=== PATIENT | female | born 1970 | race Caucasian/White ===

== ENCOUNTER → 2016-12-09 | Outpatient (CLI) | payer OTHER ==
[~2016-12-09] MED LIST: ALBUTEROL0.09 MG/A2 INH; DEMADEX20 MG; HYDR12.5C; HYDROCODONE BIT1 T11 PO; K-VESCENT25 MEQ; SYNTHROID,LEV100 MCG
[2016-12-09 08:16] LABS: BASO # 0.1 10*3/uL (0.0-0.1); BASO % 1.1 % (0.0-1.0); EOS # 0.2 10*3/uL (0.0-0.4); EOS % 2.3 % (1.0-4.0); HEMATOCRIT 45.5 % (37.0-47.0); HEMOGLOBIN 14.9 g/dl (12.0-16.0); IG # 0.1 10*3/uL (0.0-0.1); LYMPH # 3.1 10*3/uL (1.3-4.4); MEAN CORPUSCULAR HGB 29.2 pg (27.0-31.0); MEAN CORPUSCULAR HGB CONC 32.7 g/dl (33.0-37.0); MEAN PLATELET VOLUME 10.7 fl (9.6-12.3); MONO # 0.9 10*3/uL (0.1-1.0); MONO % 8.4 % (3.0-9.0); NEUT # 5.8 10*3/uL (2.3-7.9); NEUT % 56.7 % (47.0-73.0); PLATELET COUNT AUTOMATED 229 10*3/uL (130-400); RED BLOOD COUNT 5.11 10*6/uL (4.10-5.10); RED CELL DISTRI WIDTH 12.5 % (0-14.5); WHITE BLOOD COUNT 10.1 10*3/uL (4.8-10.8)
[2016-12-09 08:34] LABS: HEMOGLOBIN A1c 6.7 % (4.8-5.6)
[2016-12-09 08:43] LABS: ALBUMIN 3.8 gm/dl (3.1-4.5); ALKALINE PHOSPHATASE 121 U/L (45-117); BILIRUBIN, TOTAL 0.6 mg/dl (0.2-1.0); BUN 14 mg/dl (7-24); CARBON DIOXIDE 26 mmol/L (21-32); CHLORIDE 103 mmol/L (98-107); CHOLESTEROL 169 mg/dL (<200); EST GLOM FILT AFRICAN AMERICAN > 60 ml/min; GLUCOSE 151 mg/dL (65-99); HDL CHOLESTEROL 42 mg/dl (40-60); LDL CHOLESTEROL 109 mg/dL (9-159); POTASSIUM 4.2 mmol/L (3.5-5.1); SGOT/AST 32 IU/L (3-35); SGPT/ALT 63 U/L (12-78); SODIUM 140 mmol/L (136-145); TOTAL PROTEIN 7.7 gm/dL (6.4-8.2); TRIGLYCERIDES 89 mg/dl (<150); VLDL CHOLESTEROL 18 mg/dL (6-40)
== END | disposition home or self-care (01) ==
LOC: LAB 03:17
PROVIDERS: Internal Medicine
DX: E11.9 Type 2 diabetes mellitus without complications (principal); E03.9 Hypothyroidism, unspecified; K92.2 Gastrointestinal hemorrhage, unspecified; E78.5 Hyperlipidemia, unspecified

== ENCOUNTER → 2017-07-12 | Outpatient (CLI) | payer OTHER, MEDICAID ==
[2017-07-12 14:46] LABS: BASO # 0.1 10*3/uL (0.0-0.1); BASO % 1.1 % (0.0-1.0); EOS # 0.3 10*3/uL (0.0-0.4); EOS % 3.3 % (1.0-4.0); HEMATOCRIT 42.6 % (37.0-47.0); HEMOGLOBIN 13.7 g/dl (12.0-16.0); LYMPH % 38.5 % (27.0-41.0); MEAN CELL VOLUME 88.2 fl (81.0-99.0); MEAN CORPUSCULAR HGB 28.4 pg (27.0-31.0); MEAN CORPUSCULAR HGB CONC 32.2 g/dl (33.0-37.0); MEAN PLATELET VOLUME 11.1 fl (9.6-12.3); MONO # 0.7 10*3/uL (0.1-1.0); MONO % 8.5 % (3.0-9.0); NEUT # 3.8 10*3/uL (2.3-7.9); NEUT % 48.1 % (47.0-73.0); PLATELET COUNT AUTOMATED 204 10*3/uL (130-400); RED BLOOD COUNT 4.83 10*6/uL (4.10-5.10); RED CELL DISTRI WIDTH 12.7 % (0-14.5); WHITE BLOOD COUNT 7.9 10*3/uL (4.8-10.8)
[2017-07-12 15:20] LABS: ALBUMIN 3.6 gm/dl (3.1-4.5); CHLORIDE 100 mmol/L (98-107); POTASSIUM 4.3 mmol/L (3.5-5.1); SODIUM 138 mmol/L (136-145)
[2017-07-12 15:34] LABS: ALKALINE PHOSPHATASE 97 U/L (45-117); BUN 14 mg/dl (7-24); CHOLESTEROL 171 mg/dL (<200); CREATININE 0.74 mg/dL (0.55-1.02); HDL CHOLESTEROL 38 mg/dl (40-60); LDL CHOLESTEROL 109 mg/dL (9-159); SGOT/AST 30 IU/L (3-35); SGPT/ALT 37 U/L (12-78); THYROID STIM HORMONE (HS) 0.063 uIU/ml (0.358-4.75); TOTAL PROTEIN 7.7 gm/dL (6.4-8.2); TRIGLYCERIDES 120 mg/dl (<150); VLDL CHOLESTEROL 24 mg/dL (6-40)
== END | disposition home or self-care (01) ==
LOC: LAB 13:51
PROVIDERS: Internal Medicine
DX: I10 Essential (primary) hypertension (principal); E11.9 Type 2 diabetes mellitus without complications; E78.5 Hyperlipidemia, unspecified; E03.9 Hypothyroidism, unspecified

== ENCOUNTER → 2017-12-06 | Outpatient (CLI) | payer MEDICARE, MEDICAID | END | disposition home or self-care (01) | LOC: CARD 13:01 → MAMMO 15:20 | DX: Z12.31 Encounter for screening mammogram for malignant neoplasm of breast (principal); R06.02 Shortness of breath ==

== ENCOUNTER 2018-03-17 20:52 | Emergency (ER) | payer MEDICARE, MEDICAID ==
[~2018-03-17] VITALS: Ht 152.4 cm; Wt 119.3 kg
[2018-03-17] MEDS ORDERED: KLOR-CON SPRIN10 MEQ PO (21:03)
[2018-03-17] MEDS ORDERED: FUROSEMIDE20 M1 PO (21:03)
[2018-03-17] MEDS ORDERED: VITAMIN D50000 UNIT PO (21:04)
[2018-03-17] MEDS ORDERED: METFORMIN ER500 MG PO (21:04)
[2018-03-17] MEDS ORDERED: ONDANSETRON4 MG SL (21:05)
[2018-03-17] MEDS ORDERED: LEVOXYL200 MCG PO (21:05)
[2018-03-17] MEDS ORDERED: PAROXETINE20 MG PO (21:05)
[2018-03-17 22:11] LABS: ALBUMIN 3.9 gm/dl (3.1-4.5); ALKALINE PHOSPHATASE 120 U/L (45-117); BUN 10 mg/dl (7-24); CHLORIDE 103 mmol/L (98-107); POTASSIUM 4.2 mmol/L (3.5-5.1); SGOT/AST 28 IU/L (3-35); SGPT/ALT 38 U/L (12-78); SODIUM 138 mmol/L (136-145); TOTAL PROTEIN 8.3 gm/dL (6.4-8.2)
[2018-03-17 22:12] LABS: TROPONIN I < 0.015 ng/ml (<0.045)
[2018-03-17 22:33] LABS: BASO # 0.1 10*3/uL (0.0-0.1); EOS # 0.2 10*3/uL (0.0-0.4); EOS % 2.2 % (1.0-4.0); HEMATOCRIT 46.3 % (37.0-47.0); HEMOGLOBIN 14.8 g/dl (12.0-16.0); LYMPH # 3.8 10*3/uL (1.3-4.4); LYMPH % 37.8 % (27.0-41.0); MEAN CELL VOLUME 87.9 fl (81.0-99.0); MEAN CORPUSCULAR HGB 28.1 pg (27.0-31.0); MEAN PLATELET VOLUME 11.8 fl (9.6-12.3); MONO # 0.9 10*3/uL (0.1-1.0); MONO % 8.7 % (3.0-9.0); NEUT % 49.9 % (47.0-73.0); PLATELET COUNT AUTOMATED 218 10*3/uL (130-400); RED BLOOD COUNT 5.27 10*6/uL (4.10-5.10); RED CELL DISTRI WIDTH 14.1 % (0-14.5)
== END 2018-03-17 23:23 | disposition home or self-care (01) ==
LOC: ED 20:52
PROVIDERS: Physician Assistant
DX: R60.0 Localized edema (principal); Z88.6 Allergy status to analgesic agent; Z79.899 Other long term (current) drug therapy

== ENCOUNTER → 2018-10-12 | Day surgery (SDC) | payer MEDICARE, MEDICAID ==
[~2018-10-12] VITALS: Ht 149.8 cm; Wt 115.2 kg
[~2018-10-12] MED LIST changes: +FUROSEMIDE20 M1 PO; +KLOR-CON SPRIN10 MEQ PO; +LEVOXYL200 MCG PO; +METFORMIN ER500 MG PO; +ONDANSETRON4 MG SL; +PAROXETINE20 MG PO; +TRADJENTA5 M1 PO; +TRULICITY1.5 MG/0.5 SC; +VITAMIN D50000 UNIT PO; +ZOFRAN4 MG PO
== END | disposition home or self-care (01) ==
LOC: SDC 10-10 11:00
DX: R13.10 Dysphagia, unspecified (principal); Z53.8 Procedure and treatment not carried out for other reasons

== ENCOUNTER → 2020-02-21 | Outpatient (CLI) | payer MEDICARE, MEDICAID | END | disposition home or self-care (01) | LOC: US 12:00 | DX: R60.0 Localized edema (principal) ==

== ENCOUNTER → 2020-06-12 | Outpatient (CLI) | payer MEDICARE, MEDICAID ==
[2020-06-12 10:18] LABS: ALBUMIN 3.6 gm/dl (3.1-4.5); BUN 13 mg/dl (7-24); CHOLESTEROL 140 mg/dL (<200); CREATININE 0.81 mg/dL (0.55-1.02); SGOT/AST 27 IU/L (3-35); SGPT/ALT 30 U/L (12-78); TRIGLYCERIDES 106 mg/dl (<150); VLDL CHOLESTEROL 21 mg/dL (6-40)
[2020-06-12 10:34] LABS: ALKALINE PHOSPHATASE 111 U/L (45-117); CHLORIDE 107 mmol/L (98-107); HDL CHOLESTEROL 43 mg/dl (40-60); LDL CHOLESTEROL 76 mg/dL (9-159); POTASSIUM 4.1 mmol/L (3.5-5.1); SODIUM 138 mmol/L (136-145); THYROID STIM HORMONE (HS) 0.124 uIU/ml (0.358-4.75); TOTAL PROTEIN 8.1 gm/dL (6.4-8.2)
[2020-06-13 09:07] LABS: CREATININE,URINE 55.9 mg/dL (Not Estab.)
== END | disposition home or self-care (01) ==
LOC: LAB 08:29
PROVIDERS: ATTEND Internal Medicine Endocrinology, Diabetes & Metabolism
DX: E11.65 Type 2 diabetes mellitus with hyperglycemia (principal); E03.9 Hypothyroidism, unspecified; E55.9 Vitamin D deficiency, unspecified

== ENCOUNTER → 2020-11-05 | Outpatient (CLI) | payer MEDICARE, MEDICAID ==
[~2020-11-05] MED LIST changes: +AMARYL4 MG PO; +CRESTOR10 M1 PO; +JARDIANCE25 MG PO; +LANTUS SOL100 UNIT/1 SC; +OZEMPIC0.25 MG/01 SQ; +PIOGLITAZONE HC15 MG PO; +PROTONIX40 MG PO; -VITAMIN D50000 UNIT PO; +[UNRECOGNIZED DRUG - REMARK] PO
== END | disposition home or self-care (01) ==
LOC: COVID19 09:31
PROVIDERS: ATTEND Surgery
DX: Z01.812 Encounter for preprocedural laboratory examination (principal); Z20.822 Contact with and (suspected) exposure to COVID-19

== ENCOUNTER → 2020-11-10 | Day surgery (SDC) | payer MEDICARE, MEDICAID ==
[~2020-11-10] VITALS: Ht 149.8 cm; Wt 127.0 kg
[2020-11-10 09:09] VITALS: BP 129/78
[2020-11-10 10:19] VITALS: BP 121/65
[2020-11-10 10:35] VITALS: BP 137/73
[2020-11-10 10:51] VITALS: BP 140/68
== END ==
LOC: SDC 11-06 11:00
PROVIDERS: ATTEND Surgery
DX: Z12.11 Encounter for screening for malignant neoplasm of colon (principal); K29.50 Unspecified chronic gastritis without bleeding; E03.9 Hypothyroidism, unspecified; E78.00 Pure hypercholesterolemia, unspecified; E11.9 Type 2 diabetes mellitus without complications; E66.01 Morbid (severe) obesity due to excess calories; Z90.49 Acquired absence of other specified parts of digestive tract; Z90.89 Acquired absence of other organs; Z98.890 Other specified postprocedural states
CPT/HCPCS: 00813; 43239; G0121

== ENCOUNTER → 2021-02-18 | Outpatient (CLI) | payer MEDICARE | END | disposition home or self-care (01) | LOC: RAD 11:22 | PROVIDERS: ATTEND Physician Assistant | DX: M54.41 Lumbago with sciatica, right side (principal) ==

== ENCOUNTER → 2021-08-18 | Outpatient (CLI) | payer MEDICARE | END | disposition home or self-care (01) | LOC: MAMMO 17:01 | PROVIDERS: ATTEND Nurse Practitioner Women's Health | DX: Z12.31 Encounter for screening mammogram for malignant neoplasm of breast (principal); N64.89 Other specified disorders of breast ==

== ENCOUNTER → 2022-08-25 | Outpatient (CLI) | payer MEDICARE ==
[2022-08-25 12:48] LABS: BILIRUBIN Negative (Negative); BLOOD Negative (Negative); CLARITY Clear (Clear); COLOR Yellow (Yellow); GLUCOSE 3+ (Negative); KETONE Negative (Negative); LEUKO ESTERASE Negative (Negative); NITRITE Negative (Negative); PH 5.5 (4.5-8.0); SPECIFIC GRAVITY >= 1.030 (1.001-1.030); UROBILINOGEN 0.2 E.U./dl (0.0-1.0)
[2022-08-25 13:13] LABS: YEAST TRACE
[2022-08-25 13:14] LABS: BACTERIA 1+
[2022-08-25 13:19] LABS: VITAMIN D, 25-HYDROXY 55.1 ng/mL (30-100)
[2022-08-25 13:26] LABS: ALKALINE PHOSPHATASE 107 U/L (46-116); BUN 16 mg/dl (9-23); CHLORIDE 102 mmol/L (98-107); CHOLESTEROL 113 mg/dL (<200); CREATININE 0.86 mg/dL (0.55-1.02); FREE T4 1.36 ng/dl (0.89-1.76); LDL CHOLESTEROL 58 mg/dL (9-159); POTASSIUM 4.3 mmol/L (3.4-5.1); SGPT/ALT 19 U/L (10-49); SODIUM 138 mmol/L (136-145); THYROID STIM HORMONE (HS) 0.171 uIU/ml (0.550-4.780); TOTAL PROTEIN 7.5 gm/dL (6.0-8.0); TRIGLYCERIDES 116 mg/dl (<150)
== END | disposition home or self-care (01) ==
LOC: LAB 11:46
PROVIDERS: ATTEND Internal Medicine
DX: E11.65 Type 2 diabetes mellitus with hyperglycemia (principal); E03.9 Hypothyroidism, unspecified; E78.2 Mixed hyperlipidemia; E55.9 Vitamin D deficiency, unspecified; G62.9 Polyneuropathy, unspecified

== ENCOUNTER → 2023-03-25 | Outpatient (CLI) | payer MEDICARE ==
[2023-03-25 12:38] LABS: ALKALINE PHOSPHATASE 135 U/L (46-116); BUN 10 mg/dl (9-23); CHLORIDE 105 mmol/L (98-107); CHOLESTEROL 110 mg/dL (<200); FREE T4 1.38 ng/dl (0.89-1.76); LDL CHOLESTEROL 56 mg/dL (9-159); POTASSIUM 4.2 mmol/L (3.4-5.1); SGPT/ALT 28 U/L (10-49); TOTAL PROTEIN 7.3 gm/dL (6.0-8.0); TRIGLYCERIDES 120 mg/dl (<150)
[2023-03-25 13:00] LABS: VITAMIN D, 25-HYDROXY 69.2 ng/mL (30-100)
== END | disposition home or self-care (01) ==
LOC: LAB 11:23
PROVIDERS: ATTEND Internal Medicine
DX: E11.65 Type 2 diabetes mellitus with hyperglycemia (principal); E55.9 Vitamin D deficiency, unspecified; E03.9 Hypothyroidism, unspecified; E78.2 Mixed hyperlipidemia; G62.9 Polyneuropathy, unspecified

== ENCOUNTER → 2023-07-20 | Outpatient (CLI) | payer MEDICARE ==
[2023-07-20 10:35] LABS: BILIRUBIN Negative (Negative); BLOOD Negative (Negative); CLARITY Clear (Clear); COLOR Yellow (Yellow); GLUCOSE 3+ (Negative); KETONE Negative (Negative); LEUKO ESTERASE Negative (Negative); NITRITE Negative (Negative); SPECIFIC GRAVITY 1.025 (1.001-1.030); UROBILINOGEN 0.2 E.U./dl (0.0-1.0)
[2023-07-20 11:03] LABS: ALKALINE PHOSPHATASE 113 U/L (46-116); BUN 13 mg/dl (9-23); CHLORIDE 106 mmol/L (98-107); CHOLESTEROL 117 mg/dL (<200); FREE T4 1.45 ng/dl (0.89-1.76); LDL CHOLESTEROL 63 mg/dL (9-159); POTASSIUM 4.6 mmol/L (3.4-5.1); SGPT/ALT 53 U/L (5-49); TOTAL PROTEIN 7.4 gm/dL (6.0-8.0); TRIGLYCERIDES 119 mg/dl (<150)
[2023-07-20 11:25] LABS: YEAST TRACE
[2023-07-20 11:26] LABS: WBC 0-2 wbc/hpf (0-5)
[2023-07-20 11:36] LABS: VITAMIN D, 25-HYDROXY 68.8 ng/mL (30-100)
== END | disposition home or self-care (01) ==
LOC: LAB 10:10
PROVIDERS: ATTEND Internal Medicine
DX: E78.2 Mixed hyperlipidemia (principal); E11.65 Type 2 diabetes mellitus with hyperglycemia; G62.9 Polyneuropathy, unspecified; E03.9 Hypothyroidism, unspecified; E55.9 Vitamin D deficiency, unspecified; E66.01 Morbid (severe) obesity due to excess calories

== ENCOUNTER → 2023-11-23 | Outpatient (CLI) | payer MEDICARE ==
[2023-11-23 11:32] LABS: BILIRUBIN Negative (Negative); BLOOD Negative (Negative); CLARITY Clear (Clear); COLOR Yellow (Yellow); GLUCOSE 3+ (Negative); KETONE Negative (Negative); LEUKO ESTERASE Trace (Negative); NITRITE Negative (Negative); PH 5.5 (4.5-8.0); SPECIFIC GRAVITY >= 1.030 (1.001-1.030); UROBILINOGEN 0.2 E.U./dl (0.0-1.0)
[2023-11-23 11:51] LABS: VITAMIN D, 25-HYDROXY 68.4 ng/mL (30-100)
[2023-11-23 11:52] LABS: ALKALINE PHOSPHATASE 96 U/L (46-116); BUN 16 mg/dl (9-23); CHLORIDE 102 mmol/L (98-107); CHOLESTEROL 130 mg/dL (<200); FREE T4 1.62 ng/dl (0.89-1.76); LDL CHOLESTEROL 69 mg/dL (9-159); POTASSIUM 4.3 mmol/L (3.4-5.1); SGPT/ALT 19 U/L (5-49); TOTAL PROTEIN 7.8 gm/dL (6.0-8.0); TRIGLYCERIDES 133 mg/dl (<150)
[2023-11-23 11:54] LABS: WBC 21-30 wbc/hpf (0-5)
== END | disposition home or self-care (01) ==
LOC: LAB 10:54
PROVIDERS: ATTEND Internal Medicine
DX: E11.65 Type 2 diabetes mellitus with hyperglycemia (principal); G62.9 Polyneuropathy, unspecified; E03.9 Hypothyroidism, unspecified; E55.9 Vitamin D deficiency, unspecified; E78.2 Mixed hyperlipidemia

== ENCOUNTER → 2024-02-15 | Outpatient (CLI) | payer MEDICARE ==
[2024-02-15 11:18] LABS: BILIRUBIN Negative (Negative); BLOOD Negative (Negative); CLARITY Cloudy (Clear); COLOR Yellow (Yellow); GLUCOSE 3+ (Negative); KETONE Negative (Negative); LEUKO ESTERASE 1+ (Negative); NITRITE Negative (Negative); PH 5.5 (4.5-8.0); SPECIFIC GRAVITY 1.025 (1.001-1.030); UROBILINOGEN 0.2 E.U./dl (0.0-1.0)
[2024-02-15 11:38] LABS: BACTERIA TRACE; EPITHELIAL CELLS 21-30; WBC 21-30 wbc/hpf (0-5); YEAST 1+
[2024-02-15 11:53] LABS: VITAMIN D, 25-HYDROXY 69.2 ng/mL (30-100)
[2024-02-15 11:54] LABS: ALKALINE PHOSPHATASE 127 U/L (46-116); BUN 13 mg/dl (9-23); CHLORIDE 101 mmol/L (98-107); CHOLESTEROL 137 mg/dL (<200); LDL CHOLESTEROL 77 mg/dL (9-159); POTASSIUM 4.9 mmol/L (3.4-5.1); SGPT/ALT 27 U/L (5-49); TOTAL PROTEIN 7.6 gm/dL (6.0-8.0); TRIGLYCERIDES 143 mg/dl (<150)
== END | disposition home or self-care (01) ==
LOC: LAB 10:27
PROVIDERS: ATTEND Internal Medicine
DX: E11.65 Type 2 diabetes mellitus with hyperglycemia (principal); E03.9 Hypothyroidism, unspecified; E55.9 Vitamin D deficiency, unspecified; E78.2 Mixed hyperlipidemia; E11.40 Type 2 diabetes mellitus with diabetic neuropathy, unspecified

== ENCOUNTER → 2024-02-29 | Outpatient (CLI) | payer MEDICARE | END | disposition home or self-care (01) | LOC: LAB 08:45 | PROVIDERS: ATTEND Internal Medicine | DX: E34.9 Endocrine disorder, unspecified (principal) ==

== ENCOUNTER → 2024-05-15 | Outpatient (CLI) | payer MEDICARE ==
[2024-05-15 13:08] LABS: BILIRUBIN Negative (Negative); BLOOD Negative (Negative); CLARITY Cloudy (Clear); COLOR Yellow (Yellow); GLUCOSE 3+ (Negative); KETONE Negative (Negative); LEUKO ESTERASE 2+ (Negative); NITRITE Negative (Negative); UROBILINOGEN 0.2 E.U./dl (0.0-1.0)
[2024-05-15 13:30] LABS: RBC 0-2 rbc/hpf (0-2); WBC 16-20 wbc/hpf (0-5)
[2024-05-15 13:39] LABS: FREE T4 1.72 ng/dl (0.89-1.76); POTASSIUM 4.2 mmol/L (3.4-5.1); TOTAL PROTEIN 7.8 gm/dL (6.0-8.0); VITAMIN D, 25-HYDROXY 77.9 ng/mL (30-100)
== END | disposition home or self-care (01) ==
LOC: LAB 12:41
PROVIDERS: ATTEND Internal Medicine
DX: E11.65 Type 2 diabetes mellitus with hyperglycemia (principal); E03.9 Hypothyroidism, unspecified; E55.9 Vitamin D deficiency, unspecified; G62.9 Polyneuropathy, unspecified; E78.2 Mixed hyperlipidemia

== ENCOUNTER → 2024-08-14 | Outpatient (CLI) | payer MEDICARE ==
[2024-08-14 11:30] LABS: HEMATOCRIT 47.2 % (37.0-47.0); MEAN CELL VOLUME 87.9 fl (81.0-99.0); MEAN CORPUSCULAR HGB 27.6 pg (27.0-31.0); MEAN CORPUSCULAR HGB CONC 31.4 g/dl (33.0-37.0); MEAN PLATELET VOLUME 10.8 fl (9.6-12.3); RED BLOOD COUNT 5.37 10*6/uL (4.10-5.10); RED CELL DISTRI WIDTH 13.6 % (0-14.5); WHITE BLOOD COUNT 9.5 10*3/uL (4.8-10.8)
[2024-08-14 12:02] LABS: BILIRUBIN Negative (Negative); BLOOD Negative (Negative); CLARITY Clear (Clear); COLOR Yellow (Yellow); GLUCOSE 3+ (Negative); KETONE Negative (Negative); LEUKO ESTERASE 1+ (Negative); NITRITE Negative (Negative); PH 6.5 (4.5-8.0)
[2024-08-14 12:03] LABS: ALKALINE PHOSPHATASE 87 U/L (46-116); BUN 13 mg/dl (9-23); CHLORIDE 101 mmol/L (98-107); CHOLESTEROL 138 mg/dL (<200); LDL CHOLESTEROL 81 mg/dL (9-159); SGPT/ALT 45 U/L (5-49); TRIGLYCERIDES 113 mg/dl (<150)
[2024-08-14 12:20] LABS: FREE T4 2.07 ng/dl (0.89-1.76)
[2024-08-14 13:41] LABS: RBC 0-2 rbc/hpf (0-2)
== END | disposition home or self-care (01) ==
LOC: LAB 10:46
PROVIDERS: Physician Assistant; ATTEND Internal Medicine
DX: Z12.11 Encounter for screening for malignant neoplasm of colon (principal); R32 Unspecified urinary incontinence; I11.9 Hypertensive heart disease without heart failure; K21.9 Gastro-esophageal reflux disease without esophagitis; E03.9 Hypothyroidism, unspecified; E11.65 Type 2 diabetes mellitus with hyperglycemia; E34.9 Endocrine disorder, unspecified; E66.9 Obesity, unspecified; E78.2 Mixed hyperlipidemia; G62.9 Polyneuropathy, unspecified; E55.9 Vitamin D deficiency, unspecified

== ENCOUNTER → 2024-08-29 | Outpatient (CLI) | payer MEDICARE | END | disposition home or self-care (01) | LOC: CARD 10:27 | PROVIDERS: ATTEND Physician Assistant | DX: I08.0 Rheumatic disorders of both mitral and aortic valves (principal); R01.1 Cardiac murmur, unspecified ==

== ENCOUNTER → 2024-10-17 | Outpatient (CLI) | payer MEDICARE | END | disposition home or self-care (01) | LOC: MAMMO 10-11 10:30 | PROVIDERS: ATTEND Physician Assistant | DX: Z12.31 Encounter for screening mammogram for malignant neoplasm of breast (principal); R92.323 Mammographic fibroglandular density, bilateral breasts ==

== ENCOUNTER → 2024-11-06 | Outpatient (CLI) | payer MEDICARE | END | disposition home or self-care (01) | LOC: US 01:37 | PROVIDERS: ATTEND Physician Assistant | DX: R74.8 Abnormal levels of other serum enzymes (principal); Z90.49 Acquired absence of other specified parts of digestive tract ==

== ENCOUNTER → 2024-12-26 | Outpatient (CLI) | payer MEDICARE ==
[2024-12-26 10:36] LABS: ALKALINE PHOSPHATASE 81 U/L (46-116); BUN 15 mg/dl (9-23); CHLORIDE 104 mmol/L (98-107); CHOLESTEROL 119 mg/dL (<200); LDL CHOLESTEROL 68 mg/dL (9-159); POTASSIUM 3.9 mmol/L (3.4-5.1); SGPT/ALT 44 U/L (5-49); TOTAL PROTEIN 7.4 gm/dL (6.0-8.0); TRIGLYCERIDES 112 mg/dl (<150)
[2024-12-26 10:54] LABS: FREE T4 1.76 ng/dl (0.89-1.76)
== END | disposition home or self-care (01) ==
LOC: LAB 00:39
PROVIDERS: Student in an Organized Health Care Education/Training Program; ATTEND Internal Medicine Endocrinology, Diabetes & Metabolism
DX: E11.42 Type 2 diabetes mellitus with diabetic polyneuropathy (principal); E03.9 Hypothyroidism, unspecified; E78.2 Mixed hyperlipidemia

== ENCOUNTER → 2025-03-06 | Outpatient (CLI) | payer MEDICARE ==
[2025-03-06 10:49] LABS: FREE T4 1.13 ng/dl (0.89-1.76); TOTAL PROTEIN 7.8 gm/dL (6.0-8.0)
== END | disposition home or self-care (01) ==
LOC: LAB 01:06
PROVIDERS: Student in an Organized Health Care Education/Training Program; ATTEND Internal Medicine Endocrinology, Diabetes & Metabolism
DX: E11.42 Type 2 diabetes mellitus with diabetic polyneuropathy (principal); E03.9 Hypothyroidism, unspecified; E78.2 Mixed hyperlipidemia

== ENCOUNTER 2025-04-22 21:06 | Emergency (ER) | payer MEDICARE ==
[~2025-04-22] VITALS: Wt 90.7 kg
== END 2025-04-22 22:53 | disposition home or self-care (01) ==
LOC: ED 21:06
DX: E11.9 Type 2 diabetes mellitus without complications (principal); Z79.4 Long term (current) use of insulin; Z79.899 Other long term (current) drug therapy; Z88.8 Allergy status to other drugs, medicaments and biological substances; Z98.890 Other specified postprocedural states

== ENCOUNTER → 2025-06-19 | Outpatient (CLI) | payer MEDICARE ==
[2025-06-19 15:29] LABS: BUN 16.0 mg/dl (9-23); LDL CHOLESTEROL 73.0 mg/dL (9-159); SGPT/ALT 28.0 U/L (5-49)
== END | disposition home or self-care (01) ==
LOC: LAB 14:26
PROVIDERS: ATTEND Internal Medicine Endocrinology, Diabetes & Metabolism
DX: E11.65 Type 2 diabetes mellitus with hyperglycemia (principal); E78.2 Mixed hyperlipidemia; E24.0 Pituitary-dependent Cushing's disease